=== PATIENT | female | born 1990 | race American Indian/Alaskan Native ===

== ENCOUNTER 2020-04-24 12:05 | Emergency (ER) | payer SELFPAY ==
[2020-04-24 12:23] VITALS: BP 123/94
--- NOTE | 2020-04-24 12:32 | Emergency Department Report ---
Stated Complaint: EZCEMA - HPI History of Present Illness: The patient was evaluated in the emergency department for symptoms described in the history of present illness. He/she was evaluated in the context of the global COVID-19 pandemic, which necessitated consideration that the patient might be at risk for infection with the virus that causes COVID-19. Institutional protocols and algorithms that pertain to the evaluation of patients at risk for COVID-19 are in a state of rapid change based on information released by regulatory bodies including the CDC and federal and state organizations. These policies and algorithms were followed during the patient's care in the emergency department. Please note that these policies, procedures and recommendations changed on a rapid basis. 29-year-old -Turk[place] female presents to the emergency room stating that her eczema is flaring up. Patient denies any fever chills no nausea no vomiting no chest pain. She has not followed up with her primary care provider which she states she does not have it since she has moved here to to [place]. Patient reports she has multiple food allergies. She has a history of eczema and asthma. - Exam Physical Exam: Alert and oriented x3 no acute distress nontoxic in appearance Skin dry scaly all over. No open wounds or abrasions. Lungs nonlabored breathing Ambulatory without difficulties MSE screening note: Focused history and physical exam performed. Due to findings the following was ordered: 29-year-old -Turk[place] female presents to the emergency room stating that her eczema is flaring up. Patient denies any fever chills no nausea no vomiting no chest pain. She has not followed up with her primary care provider which she states she does not have it since she has moved here to to [place]. Patient reports she has multiple food allergies. She has a history of eczema and asthma. Discussed with patient she can follow-up at her primary care clinic urgent care or [facility]. ED Disposition for MSE Disposition: Z MED SCREENING EXAM-LEFT Is pt being admited?: No Does the pt Need Aspirin: No Condition: Stable Instructions: Eczema Additional Instructions: Recommend [id number] hydrocortisone, Aquaphor follow-up with a primary care provider or [facility] or urgent care. Referrals: [facility] [Provider Group] - 3-5 Days [facility] [Provider Group] - 3-5 Days [facility] [Other] - 3-5 Days
== END 2020-04-24 12:40 | disposition left against medical advice (07) ==
LOC: ED 12:05
DX: L30.9 Dermatitis, unspecified (principal); Z53.21 Procedure and treatment not carried out due to patient leaving prior to being seen by health care provider

== ENCOUNTER 2020-10-18 04:27 | Emergency (ER) | payer OTHER ==
--- NOTE | 2020-10-18 08:51 | Emergency Department Report ---
ED Asthma HPI - General Chief Complaint: Dyspnea/Respdistress Stated Complaint: ASTHMA/TROUBLE BREATHING Time Seen by Provider: 10/18/20 08:39 Source: patient Mode of arrival: Ambulatory Limitations: No Limitations - History of Present Illness Initial Comments: 30-year-old female with a past medical history of asthma and eczema presented to the ER this morning with complaints of asthma flareup. Patient states that the symptoms started last night while she was at work. She reports chest tightness when she got home and laid down and started with shortness of breath, dry cough and wheezing. She denies any runny nose, nasal congestion no fever. She states that she has her nebulizer machine but the tubing she does not have and she is also out of her albuterol MDI and therefore was not able to do any treatments when her symptoms flared up. Patient states that she has been hospitalized for her asthma in the past but has been about 3 to 4 years. She does admit to tobacco use sometimes. She reports no other symptoms at this time. MD Complaint: "asthma attack" -: Gradual (yesterday at work ) - Related Data Previous Rx's Medication Instructions Recorded Last Taken Type Albuterol Mdi (or & Nicu Only) 2 puff IH QID PRN #8.5 gram 10/18/20 Unknown Rx [ProAir HFA Inhaler] Cetirizine HCl [Zyrtec 10mg tab] 10 mg PO DAILY #30 tablet 10/18/20 Unknown Rx predniSONE [Deltasone] 40 mg PO QDAY #10 tab 10/18/20 Unknown Rx Allergies Allergy/AdvReac Type Severity Reaction Status Date / Time iodine Allergy Swelling Verified 04/24/20 12:20 shellfish derived Allergy Swelling Verified 04/24/20 12:20 ED Review of Systems ROS: Stated complaint: ASTHMA/TROUBLE BREATHING Other details as noted in HPI Comment: All other systems reviewed and negative Constitutional: denies: chills, fever Eyes: denies: eye pain, eye discharge, vision change ENT: denies: ear pain, throat pain, dental pain, hearing loss, epistaxis, congestion Respiratory: cough, shortness of breath, wheezing Cardiovascular: chest pain (Chest tightness) Gastrointestinal: denies: abdominal pain, nausea, vomiting, diarrhea, constipation, hematemesis, hematochezia Genitourinary: denies: urgency, dysuria, discharge Musculoskeletal: denies: back pain, joint swelling, arthralgia Skin: denies: rash, lesions, change in color, change in hair/nails, pruritus Neurological: denies: headache, weakness, numbness, paresthesias, confusion, abnormal gait Psychiatric: denies: anxiety, depression, auditory hallucinations, visual hallucinations, homicidal thoughts, suicidal thoughts Hematological/Lymphatic: denies: easy bleeding, easy bruising ED Past Medical Hx - Past Medical History Hx Asthma: Yes Additional medical history: EZCEMA - Social History Smoking Status: Never Smoker - Medications Home Medications: Home Medications Medication Instructions Recorded Confirmed Last Taken Type Albuterol Mdi (or & Nicu Only) 2 puff IH QID PRN #8.5 gram 10/18/20 Unknown Rx [ProAir HFA Inhaler] Cetirizine HCl [Zyrtec 10mg tab] 10 mg PO DAILY #30 tablet 10/18/20 Unknown Rx predniSONE [Deltasone] 40 mg PO QDAY #10 tab 10/18/20 Unknown Rx ED Physical Exam - General Limitations: No Limitations General appearance: alert, in no apparent distress - Head Head exam: Present: atraumatic, normocephalic, normal inspection - Eye Eye exam: Present: normal appearance, PERRL, EOMI Pupils: Present: normal accommodation - ENT ENT exam: Present: normal exam, mucous membranes moist, TM's normal bilaterally - Neck Neck exam: Present: normal inspection, full ROM - Respiratory Respiratory exam: Present: normal lung sounds bilaterally. Absent: respiratory distress, wheezes, rales, rhonchi - Cardiovascular Cardiovascular Exam: Present: regular rate, normal rhythm, normal heart sounds - Neurological Exam Neurological exam: Present: alert, oriented X3, CN II-XII intact, normal gait - Psychiatric Psychiatric exam: Present: normal affect, normal mood - Skin Skin exam: Present: intact ED Course Vital Signs 10/18/20 10/18/20 10/18/20 04:36 06:26 08:51 Temperature 98.8 F 98.6 F Pulse Rate 85 83 Respiratory 14 18 Rate Blood Pressure 127/63 145/100 Blood Pressure 120/68 [Right] O2 Sat by Pulse 100 98 Oximetry ED Medical Decision Making - Medical Decision Making 2057: Patient has been here in the ER 4 hours prior to me arriving on my shift. She reports no worsening symptoms since he has been waiting in the ER. She appears well, she does not appear to be in any acute respiratory or pain d istress, she has a slight intermittent dry cough but otherwise chest is clear to auscultation. Repeat vital signs are stable without any hypoxia, tachycardia tachypnea and she is afebrile. At this time patient is stable for outpatient treatment of her asthma with steroids, and we will give her a refill on her albuterol MDI, and tubing for nebulizer machine was also given to her from the ER. She states she already has albuterol solution for her nebulizer machine. Patient expressed understanding of instructions and agree with plan. Patient stable at time of discharge. Critical care attestation.: If time is entered above; I have spent that time in minutes in the direct care of this critically ill patient, excluding procedure time. ED Disposition Clinical Impression: Asthma exacerbation Disposition: TO HOME OR SELFCARE Is pt being admited?: No Does the pt Need Aspirin: No Condition: Stable Instructions: Asthma, Adult Additional Instructions: Use your albuterol MDI or you albuterol nebulizer every 4-6 hours as needed for shortness of breath wheezing or chest tightness. Take the prednisone as prescribed. Follow-up closely with primary care doctor in the next couple days. Return to the ER if your symptoms changes or worsens in any way. Prescriptions: predniSONE [Deltasone] 40 mg PO QDAY #10 tab Albuterol Mdi (or & Nicu Only) [ProAir HFA Inhaler] 2 puff IH QID PRN #8.5 gram PRN Reason: Shortness Of Breath Cetirizine HCl [Zyrtec 10mg tab] 10 mg PO DAILY #30 tablet Referrals: RICHY ROPER MD [Staff Physician] - 3-5 Days Forms: Work/School Release Form(ED) Time of Disposition: 08:54
[2020-10-18 08:52] VITALS: BP 120/68
== END 2020-10-18 09:48 | disposition home or self-care (01) ==
LOC: ED 04:27
DX: J45.901 Unspecified asthma with (acute) exacerbation (principal); Z79.899 Other long term (current) drug therapy; Z91.013 Allergy to seafood; Z88.8 Allergy status to other drugs, medicaments and biological substances
CPT/HCPCS: 99282